=== PATIENT | male | born 1975 | race Two or more races ===

== ENCOUNTER 2023-02-16 15:20 | Emergency (ER) | payer MEDICAID, OTHER ==
[~2023-02-16] VITALS: Ht 180.3 cm; Wt 86.4 kg
[2023-02-16 18:43] VITALS: BP 130/72; PULSE 87; RESP 16; O2SAT 100
[2023-02-16] MEDS ORDERED: AUG875T PO (22:29)
[2023-02-16] MEDS ORDERED: CYCL-839 PO (22:29)
[2023-02-16] MEDS ORDERED: FLUT1SPR5 (22:29)
[2023-02-16] MEDS ORDERED: IBUP1TAB5 PO (22:29)
[2023-02-16] MEDS ORDERED: HYDROcodone-ACET 5/325MG TAB PO ONE (22:30)
== END 2023-02-16 22:18 | disposition home or self-care (01) ==
LOC: ER 15:20 → EDBD 15:20 → ER 22:18
DX: S13.8XXA Sprain of joints and ligaments of other parts of neck, initial encounter (principal); S43.492A Other sprain of left shoulder joint, initial encounter; S76.812A Strain of other specified muscles, fascia and tendons at thigh level, left thigh, initial encounter; S20.212A Contusion of left front wall of thorax, initial encounter; S00.33XA Contusion of nose, initial encounter; M50.323 Other cervical disc degeneration at C6-C7 level; M51.34 Other intervertebral disc degeneration, thoracic region; K02.9 Dental caries, unspecified; K76.0 Fatty (change of) liver, not elsewhere classified; J32.9 Chronic sinusitis, unspecified; Z79.1 Long term (current) use of non-steroidal anti-inflammatories (NSAID); Z79.899 Other long term (current) drug therapy; V89.2XXA Person injured in unspecified motor-vehicle accident, traffic, initial encounter; Y93.89 Activity, other specified; Y92.89 Other specified places as the place of occurrence of the external cause; Y99.8 Other external cause status
CPT/HCPCS: 70450; 70486; 71250; 72125; 73030

== ENCOUNTER 2024-01-17 13:12 | Emergency (ER) | payer SELFPAY ==
[~2024-01-17] VITALS: Ht 177.8 cm; Wt 90.0 kg
[~2024-01-17 13:12] MED LIST: AUG875T PO; CYCL-839 PO; FLUT1SPR5; IBUP1TAB5 PO
[2024-01-17 13:30] VITALS: BP 104/68; PULSE 76; RESP 17; O2SAT 97
== END 2024-01-17 18:15 | disposition left against medical advice (07) ==
LOC: ER 13:12
DX: K08.89 Other specified disorders of teeth and supporting structures (principal); M25.571 Pain in right ankle and joints of right foot; Z53.21 Procedure and treatment not carried out due to patient leaving prior to being seen by health care provider